=== PATIENT | male | born 1970 | race Caucasian/White ===

== ENCOUNTER 2016-11-12 15:31 | Emergency (ER) | payer OTHER ==
--- NOTE | ~2016-11-12 | CR72 ---
[facility]. [facility] A Service of [facility] / [facility] RADIOLOGY TEXT RESULTS PATIENT: TONY SALINAS LOCATION: SED : 68 UNIT #: [id number] AGE: [address]: Clarissa Allred MD SEX: M ORDER DR: [id number] [place] [id number] E MR#: [id number] Acc #: [id number] NAME: TONY SALINAS : 1970 SEX: M STUDY DATE/TIME: 11/12/2016 16:19 UNIT: SED ROOM: STUDY DESCRIPTION: CR Chest Single View Portable Attending Physician: Clarissa Allred M.D. Ordering Physician: lCarissa Allred M.D. Primary Care Physician: No Primary Care Physician MEDICAL IMAGING REPORT This report is preliminary unless electronic signature is present. EXAM Portable chest x-ray 11/12/2016 HISTORY Chest pain. Fatigue. Chest pain from running from police. Today this morning. Smoker 20 years. FINDINGS Two AP radiograph of the chest are presented. No acute bony abnormality. Heart and mediastinum normal in size and contour. Lungs are somewhat hyperinflated. Patient gives a history of over 20 years smoking. Hyperinflation of lungs could reflect underlying COPD in this context. There is no evidence of acute infectious or inflammatory disease. No pleural effusion or pneumothorax. No suspicious nodule. Dictated by... Jey Blake M.D. THIS IS AN ELECTRONICALLY VERIFIED REPORT Jey Blake M.D. at 11/13/2016 7:11 PM SURINDER/mu TD: 11/12/2016 20:12 JOB #: [id number] MEDICAL IMAGING REPORT Page 1 of 1
--- NOTE | ~2016-11-12 | EKG ---
PATIENT: TONY SALINAS UNIT #: [id number] Ventricular Rate: 80 BPM Atrial Rate: 80 BPM P-R Interval: 142 ms QRS Duration: 86 ms Q-T Interval: 358 ms QTC Calculation(Bezet): 412 ms P Tangent: 68 degrees Calculated R Tangent: -21 degrees Calculated T Tangent: 50 degrees Diagnosis Line: Normal sinus rhythm Diagnosis Line: Normal ECG Diagnosis Line: No previous ECGs available Diagnosis Line: Confirmed by FARHAT SZYMANSKI MD ([id number]) on Diagnosis Line: 11/13/2016 10:58:24 AM INTERPRETING MD: STEPHON FERNANDEZ
[2016-11-12] MEDS ORDERED: NO MEDICATIONS (15:45)
[2016-11-12 16:04] LABS: BASOPHIL% 0.4 % (0-2.5); EOSINOPHIL% 0.2 % (0.0-7.0); HEMATOCRIT 39.5 % (38.0-50.0); HEMOGLOBIN 13.5 gm/dL (13.0-16.0); LYMPHOCYTE# 0.9 X10e3 (1.0-3.5); LYMPHOCYTE% 12.3 % (17.0-45.0); MEAN CELL VOLUME 87.3 FL (83-96); MEAN CORPUSCULAR HEMOGLOBIN 29.8 PG (28-34); MEAN CORPUSCULAR HGB CONC 34.2 g/dL (30-36); MEAN PLATELET VOLUME 8.9 FL (6.5-11.5); MONOCYTE# 0.4 X10e3 (0-1.0); MONOCYTE% 5.2 % (3.0-12.0); NEUTROPHIL# 6.2 X10e3 (1.5-7.1); NEUTROPHIL% 81.9 % (40-75); PLATELET COUNT 259 X10e3 (140-420); RED BLOOD COUNT 4.53 X10e (3.90-5.60); RED CELL DISTRIBUTION WIDTH 13.3 % (11.0-15.5); WHITE BLOOD COUNT 7.5 X10e3 (4.0-10.5)
[2016-11-12 16:07] LABS: DIFF IND NO
[2016-11-12 16:23] LABS: BLOOD UREA NITROGEN 9 mg/dL (9-23); CALCIUM SERUM 9.4 mg/dL (8.4-10.2); CARBON DIOXIDE 23 mmol/L (22-31); CHLORIDE 104 mmol/L (100-111); CREATININE SERUM 0.9 mg/dL (0.6-1.4); GLOM FILT RATE Estimated 101.4 mL/min (>60); GLUCOSE FASTING 119 mg/dL (70-110); POTASSIUM 3.7 mmol/L (3.5-5.1); SODIUM 136 mmol/L (135-145)
[2016-11-12 16:23] LABS: POC - CKMB 1.2 ng/mL (0.0-7.9); POC - TROPONIN <0.05 ng/mL (<=0.05)
[2016-11-12 16:37] LABS: ALCOHOL BLOOD <5 mg/dL ([, 0])
== END 2016-11-12 18:22 ==
LOC: SED 15:31
PROVIDERS: Emergency Medicine
DX: R07.89 Other chest pain (principal); L02.416 Cutaneous abscess of left lower limb; F17.210 Nicotine dependence, cigarettes, uncomplicated
CPT/HCPCS: 36415; 71010; 80048; 82553; 84484; 85025; 87070; 87077; 87186; 87205; 93005; 99285; G0480